=== PATIENT | female | born 1930 | race Caucasian/White ===

== ENCOUNTER 2016-12-10 11:46 | Inpatient (IN) | payer MEDICARE, OTHER ==
[~2016-12-10] VITALS: Ht 142.2 cm; Wt 52.7 kg
[~2016-12-10 11:46] MED LIST: ARICEPT5 MG PO; ASPIRIN ADULT L81 M1 PO; ATENOLOL/CHLORT1 TA1 PO; ATENOLOL25 MG PO; ATIVAN1 MG PO; BIAXIN FILMTAB500 MG PO; BUS5 PO; COL100 PO; COLACE100 MG PO; DEC150 PO; EC NAPROSYN500 MG PO; GLU500 PO; GOOD SENSE ASPI81 M3 PO; LAC PO; LEVAQUIN750 MG PO; LIPI10 PO; MEDDP PO; MOM PO; NORCO1 TA2 PO; OMEPRAZOLE40 M1 PO; PENTOXIFYL XR400 M1 PO; PRI20 PO; TEN50 PO; VENTOLIN H0.09 MG/A1 INH; VIT D3 PO
--- NOTE | 2016-12-10 11:55 | NUR ---
TO BED 7 VIA WHEELCHAIR, C/O SOB X2 DAYS. FAMILY AT BEDSIDE STATES COUGH AND COLD SX X1 WEEK. O2 SAT ON RA 91%.
--- NOTE | 2016-12-10 12:04 | NUR ---
DR. CAMPOS AT BEDSIDE.
--- NOTE | 2016-12-10 12:08 | NUR ---
LAB AT BEDSIDE.
--- NOTE | 2016-12-10 12:19 | NUR ---
RT AT BEDSIDE FOR BREATHING TX.
--- NOTE | 2016-12-10 12:19 | NUR ---
UNABLE TO GIVE URINE SAMPLE AT THIS TIME.
[2016-12-10 12:44] LABS: CALCIUM 10.3 mg/dL (8.5-10.1); CARBON DIOXIDE 39.3 mmol/L (21-32); CHLORIDE SERUM 94 mmol/L (98-107); CREATININE SERUM 0.8 mg/dL (0.6-1.0); GLUCOSE SERUM 122 mg/dL (74-106); POTASSIUM SERUM 3.6 mmol/L (3.5-5.1); SODIUM SERUM 134 mmol/L (136-145)
[2016-12-10 12:46] LABS: BASOPHIL % 0.2 % (0-2); PLATELET COUNT 285 x10^3mcL (130-400); RED CELL DISTRIBUTION WIDTH 14.1 % (11.5-14.5)
[2016-12-10 12:55] LABS: ALBUMIN 3.8 g/dL (3.4-5.0); ALKALINE PHOSPHATASE 106 U/L (46-116); ALT/SGPT 25 U/L (14-59); AST/SGOT 26 U/L (15-37); BILIRUBIN TOTAL 0.6 mg/dL (0.20-1.00); C REACTIVE PROTEIN 2.4 mg/dL (<=0.9); TOTAL PROTEIN, SERUM 7.8 g/dL (6.4-8.2)
[2016-12-10 13:03] LABS: FREE T4 1.5 ng/dL (0.76-1.46); T4(THYROXINE) 10.2 ug/dL (4.7-13.3)
[2016-12-10 13:12] LABS: T3 TOTAL 0.88 ng/mL
[2016-12-10] MEDS ORDERED: NAMENDA10 M2 (13:43)
[2016-12-10] MEDS ORDERED: TRE400 PO (13:44)
[2016-12-10] MEDS ORDERED: ARICEPT5 MG PO (13:44)
[2016-12-10] MEDS ORDERED: SIMVASTATIN10 M1 PO (13:46)
[2016-12-10] MEDS ORDERED: NAPROSYN500 MG PO (13:46)
[2016-12-10] MEDS ORDERED: TENORETIC 501 TAB PO (13:47)
[2016-12-10] MEDS ORDERED: ALENDRONATE SOD70 M2 PO (13:47)
[2016-12-10 13:58] LABS: microscopic required? YES
[2016-12-10 13:59] LABS: urine erythrocyte NEGATIVE (NEGATIVE)
--- NOTE | 2016-12-10 14:17 | NUR ---
PER MD CAMPOS OK TO HAVE APPLESAUCE FOR NOW.
--- NOTE | 2016-12-10 15:17 | NUR ---
2ND BREATHING TX IN PROGRESS.
--- NOTE | 2016-12-10 15:31 | NUR ---
PT ADMITTED TO TELE, REPORT GIVEN TO DAVID.
[2016-12-10 15:43] VITALS: BP 105/55
[2016-12-10 15:52] LABS: CHOLESTEROL/HDL RATIO 2.3
--- NOTE | 2016-12-10 16:10 | NUR ---
RECEIVED PT FROM ED VIA COURTNEY, CAME IN DUE TO WORSENING SOB. AAOX2. ABLE TO FOLLOW COMMANDS. MILD SOB NOTED, ON 3LPM/NC, LUNG SOUNDS DIMINISHED ON AUSCULTATION. PER FAMILY PT HAS DARK GREEN PHLEGM BUT THE PT HAS A HARD TIME EXPECTORATING. DENIES CHEST PAIN/PRESSURE, SR W/ PAC'S AND PVC'S ON THE MONITOR. DENIES ABDOMINAL DISCOMFORT. FAMILY AT BEDSIDE. SIDE RAILS UPX2. CALL LIGHT ON REACH. ENDORSED
[2016-12-10 16:18] VITALS: BP 108/46
[2016-12-10 16:30] VITALS: Ht 142.2 cm; Wt 52.7 kg
--- NOTE | 2016-12-10 18:39 | NUR ---
PT SITTING UP IN CHAIR, ON O2 VIA NC AT 2L, NO SOB NOTED. CALL LIGHT WITHIN REACH.
--- NOTE | 2016-12-10 19:05 | NUR ---
AOX2. FAMILY AT BEDSIDE. TELE #27, SR WITH PAC'S & PVC'S. LUNG SOUNDS DIMINISHED BILATERAL ON NC @ 3L. DENIES SOB AT THIS TIME. BOWEL SOUNDS ACTIVE X 4 QUADRANTS. VOIDS FREELY. AMBULATES WITH WALKER. SKIN INTACT. DENIES PAIN. NS @ 60 ML/HR TO LEFT HAND, NO REDNESS OR SWELLING. BED IN LOW POSITION, CALL LIGHT IN REACH. INSTRUCTED TO CALL FOR ASSISTANCE.
[2016-12-10 21:06] VITALS: BP 116/53
--- NOTE | 2016-12-11 01:26 | NUR ---
RESTING WITH EYES CLOSED, AWAKENS EASILY TO VERBAL STIMULI. BREATHING EVEN AND UNLABORED. NO ACUTE DISTRESS NOTED. WILL CONTINUE TO MONITOR.
[2016-12-11 05:41] VITALS: BP 123/55
--- NOTE | 2016-12-11 06:26 | NUR ---
NO ACUTE CHANGES DURING SHIFT. WILL ENDORSE TO ONCOMING RN.
[2016-12-11 06:46] LABS: BASOPHIL % 0.2 % (0-2); PLATELET COUNT 252 x10^3mcL (130-400); RED CELL DISTRIBUTION WIDTH 13.9 % (11.5-14.5)
[2016-12-11 07:10] LABS: CALCIUM 9.5 mg/dL (8.5-10.1); CARBON DIOXIDE 37.8 mmol/L (21-32); CHLORIDE SERUM 97 mmol/L (98-107); CREATININE SERUM 0.7 mg/dL (0.6-1.0); GLUCOSE SERUM 210 mg/dL (74-106); MAGNESIUM 1.8 mg/dL (1.8-2.4); PHOSPHOROUS 2.9 mg/dL (2.5-4.9); POTASSIUM SERUM 3.7 mmol/L (3.5-5.1); SODIUM SERUM 135 mmol/L (136-145)
--- NOTE | 2016-12-11 08:00 | NUR ---
AWAKE,ALERT W/ PERIODS OF FORGETFULNESS AND CONFUSION,ABLE TO FOLLOW SIMPLE COMMAND,REQUIRES/ MOD. ASSIST. W/ ADL NEEDS.ABLE TO AMBULATE W/ ASSIST W/ WALKER IN THE BATHROOM.NO ACUTE DISTRESS NOTED. CONT. IV FLUIDS ORDERED. CALL LIGHT W/ IN REACH. WILL CONT. PLAN OF CARE.
--- NOTE | 2016-12-11 08:30 | NUR ---
DR. ASIF HERE W/ OTHER MEDICAL STAFF MADE ROUNDS AND UPDATED PT. PLAN OF CARE.
[2016-12-11 09:05] VITALS: BP 116/57
--- NOTE | 2016-12-11 10:00 | NUR ---
PT. C/O OF ZURITA MEDICATED W/ TYLENOL ORDERED. MADE PT. COMFORTABLE IN BED.CALL LIGHT W/ IN REACH.
[2016-12-11 12:57] VITALS: BP 106/50
[2016-12-11 13:10] LABS: ERYTHROCYTE SED RATE 24 mm/hr (0-30)
[2016-12-11 16:54] VITALS: BP 100/52
--- NOTE | 2016-12-11 18:00 | NUR ---
PT. ABLE TO AMBULATE IN THE BATHROOM W/ ASSIST W/ WALKER AND VOIDING WELL ,PT. UP IN CHAIR FOR LUNCH AND DINNER PAUL. WELL. NO ACUTE DISTRESS NOTED.CALL LIGHT W/ IN REACH.
--- NOTE | 2016-12-11 20:00 | NUR ---
I HAVE REVIEWED THE DATA COLLECTION BY RACHAEL (NAME):JT GOLDBERG LVN ENTERED ON (DATE/TIME):12/11/16 AT 2000PM I CONCUR WITH THE DATA AND ANY EXCEPTIONS OR COMMENTS ARE LISTED BELOW:
--- NOTE | 2016-12-11 20:34 | NUR ---
RECEIVED PT SITTING ON THE CHAIR NO ACUTE DISTRESS NOTED , PT'S ON 2L N/C SAT 95% NO RESP DISTRESS NOTED, LUNG SOUNDS DIMINISHED WITH PRODUCTIVE COUGH NO RESP DISTRESS NOTED , PIV INTACT INFUSING WELL , ON TELE NUMBER 27 THAT SHOWS NSR HR 90.
[2016-12-11 20:56] VITALS: BP 105/51
--- NOTE | 2016-12-12 00:27 | NUR ---
PT'S SITTING ON THE CHAIR WITH EYES CLOSED , PIV INTACT INFUSING WELL , TELE NSR .
[2016-12-12 05:46] VITALS: BP 107/61
[2016-12-12 06:11] LABS: PLATELET COUNT 254 x10^3mcL (130-400); RED CELL DISTRIBUTION WIDTH 14.2 % (11.5-14.5)
[2016-12-12 06:22] LABS: CALCIUM 9.8 mg/dL (8.5-10.1); CARBON DIOXIDE 35.7 mmol/L (21-32); CHLORIDE SERUM 98 mmol/L (98-107); CREATININE SERUM 0.8 mg/dL (0.6-1.0); GLUCOSE SERUM 164 mg/dL (74-106); MAGNESIUM 1.9 mg/dL (1.8-2.4); PHOSPHOROUS 2.9 mg/dL (2.5-4.9); POTASSIUM SERUM 4.8 mmol/L (3.5-5.1); SODIUM SERUM 136 mmol/L (136-145)
--- NOTE | 2016-12-12 06:26 | NUR ---
NO CHANGES OF CONDITION NOTED, ALL DUE MEDS GIVEN NO REACTION NOTED PT;S IN BED AAO, NO RESP DISTRESS NOTED, TELE NSR .
[2016-12-12 06:30] LABS: BASOPHIL % 0 % (0-2)
--- NOTE | 2016-12-12 06:56 | NUR ---
SENT [employer] MESSAGE TO DR GOMEZ RE: WBC 21.0.
--- NOTE | 2016-12-12 07:20 | NUR ---
AAOX 3 ABLE TO VERBALIZE NEEDS WITH CLEAR AND COHERENT SPEECH, FAM AT BEDSIDE, PT IS ON OXYGEN AT 3L VIA NC, LUNGS CONGESTED AT ATA UPPER LOBES, PRODUCTIVE COUGH, NO PHLEGM NOTED, DENIES SOB, SYM CHEST EXPANSION, NO RESPIRATORY DISTRESS NOTED, ON TELE #27 SR ON MONITOR, DENIES HEART RELATED PAIN OR DISCOMFORT, IV AT LEFT HAND, PATENT, CALL LIGHT WITHIN REACH, WILL CONTINUE TO PROVIDE CARE.
[2016-12-12 09:03] VITALS: BP 109/47
[2016-12-12 12:30] VITALS: BP 110/58
--- NOTE | 2016-12-12 15:27 | NUR ---
C/O DECREASED APPETITE, ALTERNATIVE CHOICES OFFERED AND PROVIDED, STATES "THE FOOD DOES NOT TASTE GOOD HERE" WILL CONTINUE TO ENCOURAGE PO INTAKE, FAMILY IS VERY SUPPORTIVE.
[2016-12-12 17:12] VITALS: BP 103/55
--- NOTE | 2016-12-12 18:43 | NUR ---
PATIENT & FAMILY DECLINED DOSE OF HUM R INSULIN 3 UNITS FOR BG 163MG/DL, PT HAD BEEN DECLINING FOOD AND GRANDDAUGHTER FEARED HER BG WOULD "DROP TOO MUCH" RISKS AND BENEFITS EXPLAINED, PATIENT AND FAM VERBALIZED UNDERSTANDING OF INFORMATION.
--- NOTE | 2016-12-12 19:31 | NUR ---
FAM AT BEDSIDE, PT IS SITTING UP IN CHAIR, ON OXYGEN VIA NC AT 3L, DENIES SOB AT THIS TIME, CONTINUES TO HAVE COUGHING EPISODES, WAS ABLE TO EAT DINNER WITHOUT GI DISTRESS, NO OTHER SIGNIFICANT CHANGES NOTED, WILL ENDORSE CARE TO NIGHT NURSE.
--- NOTE | 2016-12-12 19:53 | NUR ---
RECEIVED AWAKE AND RESPONSIVE TO STIMULI. SKIN WARM AND DRY TO TOUCH. ON 02 AT 3L/NC .WITH DIMINISHED BREATHE SOUNDS BILATERALLY. DENEIS ANY CHEST PAIN/SNY DISCOMFORT AT THIS TIME. FAMILY AT BEDSIDE VERY SUPPORTIVE OF CURRENT PATIENT'S PLAN OF CARE.
[2016-12-12 21:54] VITALS: BP 135/70
--- NOTE | 2016-12-13 00:10 | NUR ---
EYES CLSOED, NO FACIAL GRIAMCING NOTED. RESPIRATION EVEN AND UNLABORED. MAINTAINED AT 3L/NC SATURATING AT 96-97%. UP IN THE CHAIR MOST OF THE TIME FOR COMFORT. WILL CONTINUE TO MONITOR.
[2016-12-13 05:10] VITALS: BP 116/72
[2016-12-13 06:23] VITALS: BP 116/63
[2016-12-13 06:28] LABS: BASOPHIL % 0.5 % (0-2); PLATELET COUNT 261 x10^3mcL (130-400); RED CELL DISTRIBUTION WIDTH 13.6 % (11.5-14.5)
--- NOTE | 2016-12-13 06:30 | NUR ---
BLOOD SUGAR-141MG/DL, NO S.//S OF GLYCEMIC REACTION. TOELRATED ORAL FLUIDS, NO S/S OF ASPIRATION NOTED. NO S/S OF ACUTE RESPIRATORY DISTRESS. ALL NEEDS ATTENDED.
[2016-12-13 06:58] LABS: CALCIUM 9.8 mg/dL (8.5-10.1); CARBON DIOXIDE 36.1 mmol/L (21-32); CHLORIDE SERUM 96 mmol/L (98-107); CREATININE SERUM 0.7 mg/dL (0.6-1.0); GLUCOSE SERUM 133 mg/dL (74-106); MAGNESIUM 1.8 mg/dL (1.8-2.4); PHOSPHOROUS 2.5 mg/dL (2.5-4.9); POTASSIUM SERUM 3.7 mmol/L (3.5-5.1); SODIUM SERUM 135 mmol/L (136-145)
[2016-12-13 08:39] VITALS: BP 125/63
--- NOTE | 2016-12-13 08:42 | NUR ---
X-RAY OF SHOULDER COMPLETED AT THIS TIME.
--- NOTE | 2016-12-13 09:10 | NUR ---
C/O FEELING NAUSEUS, DECLINED BREAKFAST TRAY, ADMIN ANTIEMETIC ORDERED, PT IS CURRENTLY SITTING UP IN CHAIR, DENIES SOB, FAM AT BEDSIDE.
[2016-12-13 12:40] VITALS: BP 112/68
--- NOTE | 2016-12-13 13:46 | NUR ---
ORDER TO WEAN PT OFF OF OXYGEN ENTERED, DR VARNER MADE AWARE OF PT'S CONTINUOUS USE OF OXYGEN AT HOME, WILL D/C ORDER. ,
--- NOTE | 2016-12-13 14:45 | NUR ---
CONTINUES TO HAVE DECREASED APPETITE, REINFORCED EDUCATION ON POSSIBLE SIDE EFFECTS OF IV ANTIBIOTIC AFFECTING TASTE BUDS, PT VERBALIZED UNDERSTANDING, DAUGHTER REPORTS PATIENT IS A "VERY PICKY EATER AT HOME TOO" WILL CONTINUE TO ENCOURAGE ADEQUATE NUTRITION, CALL LIGHT WITHIN REACH.
[2016-12-13] MEDS ORDERED: MEDDP PO (15:00)
[2016-12-13] MEDS ORDERED: LEVAQUIN750 MG PO (15:35)
[2016-12-13 15:59] VITALS: BP 112/68
[2016-12-13 17:10] VITALS: BP 115/60
--- NOTE | 2016-12-13 18:05 | NUR ---
PATIENT DISCHARGED HOME, REVIEWED DISCHARGE INSTRUCTIONS WITH DAUGHTER AND PATIENT, INCLUDING FOLLOW UP APPOINTMENT WITH PCP, DAUGHTER AND PATIENT VERBALIZED UNDERSTANDING OF INFORMATION PRESENTED. IV D/C'D, CATH TIP INTACT, NO BLEEDING OR PHLEBITIS NOTED, COVERED WITH BANDAID, TELE MONITOR REMOVED, PATIENT WILL BED ASSISTED DOWNSTAIRS VIA WHEELCHAIR BY DAUGHTER AND THREAD REELER.
== END 2016-12-13 18:05 | disposition home or self-care (01) | DRG 189 ==
LOC: ED 11:46 → DU 15:03
PROVIDERS: Specialist; ADMIT Family Medicine
DX: J96.01 Acute respiratory failure with hypoxia (principal); N17.0 Acute kidney failure with tubular necrosis; J44.1 Chronic obstructive pulmonary disease with (acute) exacerbation; N39.0 Urinary tract infection, site not specified; E87.1 Hypo-osmolality and hyponatremia; I42.9 Cardiomyopathy, unspecified; E86.0 Dehydration; I08.1 Rheumatic disorders of both mitral and tricuspid valves; I10 Essential (primary) hypertension; E11.65 Type 2 diabetes mellitus with hyperglycemia; E11.51 Type 2 diabetes mellitus with diabetic peripheral angiopathy without gangrene; E83.52 Hypercalcemia; M81.0 Age-related osteoporosis without current pathological fracture; F41.9 Anxiety disorder, unspecified; F03.90 Unspecified dementia, unspecified severity, without behavioral disturbance, psychotic disturbance, mood disturbance, and anxiety; Z68.26 Body mass index [BMI] 26.0-26.9, adult; Z99.81 Dependence on supplemental oxygen; Z77.22 Contact with and (suspected) exposure to environmental tobacco smoke (acute) (chronic)
CPT/HCPCS: 36600; 83880; 84439; G0378; J0456; J0696; J2405; J2920; J2930; J7030; J7050; J7613; J7620; J7644; Q0092

== ENCOUNTER 2018-04-04 15:59 | Inpatient (IN) | payer MEDICARE, OTHER ==
[~2018-04-04] VITALS: Ht 142.2 cm; Wt 53.1 kg
[~2018-04-04 15:59] MED LIST changes: +ALENDRONATE SOD70 M2 PO; +NAMENDA10 M2; +NAPROSYN500 MG PO; +SIMVASTATIN10 M1 PO; +TENORETIC 501 TAB PO; +TRE400 PO
--- NOTE | 2018-04-04 16:09 | NUR ---
TO ROOM 5 FOR EVAL.
--- NOTE | 2018-04-04 16:43 | NUR ---
PATIENT IN ED WITH C/O FEELING SOB AND HAVING LABORED BREATHING FOR 3DAYS. PER DAUGHTER, PATIENT HAS HX OF COPD IS ON 3L OXYGEN VIA NC BUT HAS HAD TO INCREASE TO 4L IN PAST TWO DAYS. PATIENT AAOX4 TALKING AND RESPONDING APPROPRIETLY. PLACED ON MONITOR, OXYGEN VIA NC AT 4L. WILL CONTINUE TO MONITOR.
[2018-04-04 17:35] LABS: UA SPECIFIC GRAVITY 1.015 (1.005-1.035); microscopic required? YES; urine erythrocyte TRACE (NEGATIVE)
[2018-04-04 17:47] LABS: BASOPHIL % 0.4 % (0-2); PLATELET COUNT 240 x10^3mcL (130-400)
[2018-04-04 17:49] LABS: RED CELL DISTRIBUTION WIDTH 15.2 % (11.5-14.5)
--- NOTE | 2018-04-04 18:02 | NUR ---
PATIENT ON BIPAP, TOLERATING WELL. NAD AT THIS TIME. SLEEPING. FAMILY AT BEDSIDE. WILL CONTINUE TO MONITOR.
[2018-04-04 18:11] LABS: ALKALINE PHOSPHATASE 86 U/L (46-116); ALT/SGPT 24 U/L (14-59); AST/SGOT 21 U/L (15-37); BILIRUBIN TOTAL 0.3 mg/dL (0.20-1.00); CALCIUM 9.9 mg/dL (8.5-10.1); CHLORIDE SERUM 94 mmol/L (98-107); CHOLESTEROL 142 mg/dL (<200); CREATININE SERUM 0.8 mg/dL (0.6-1.0); GLUCOSE SERUM 159 mg/dL (74-106); HDL CHOLESTEROL 58 mg/dL (40-60); LIPASE 506 IU/L (73-393); MAGNESIUM 1.6 mg/dL (1.8-2.4); POTASSIUM SERUM 4.1 mmol/L (3.5-5.1); SODIUM SERUM 140 mmol/L (136-145); T4(THYROXINE) 6.6 ug/dL (4.7-13.3)
[2018-04-04 18:22] LABS: ALBUMIN 2.9 g/dL (3.4-5.0); AMYLASE 191 U/L (25-115)
[2018-04-04 18:23] LABS: CARBON DIOXIDE 42.4 mmol/L (21-32)
[2018-04-04] MEDS ORDERED: LASIX20 MG (18:43)
--- NOTE | 2018-04-04 19:00 | NUR ---
PATIENT VOIDED X1, DIAPER AND LINEN SOILED AND CHANGED. PT. TOLERATED WELL. REPORTS SHE IS FEELING LESS SOB AT THIS TIME. CURRENTLY ON BIPAP. DAUGHTER AT BEDSIDE. CALL LIGHT IN REACH.
--- NOTE | 2018-04-04 19:10 | NUR ---
REPORT GIVEN TO RASHEL WILDER FOR FURTHER CARE OF PT
--- NOTE | 2018-04-04 19:32 | NUR ---
RECEIVED REPORT FROM TINA ANDRES FOR CONTINUITY OF CARE
--- NOTE | 2018-04-04 20:06 | NUR ---
REPORT GIVEN TO TINA BARBER FOR CONTINUITY OF CARE
--- NOTE | 2018-04-04 20:16 | NUR ---
RECEIVED PT FROM ED VIA JACKELIN, CAME IN DUE TO SOB. AAOX3 (PERSON, PLACE, MONTH AND YEAR AND BIRTHDATE). ABLE TO FOLLOW SIMPLE COMMANDS. NO SOB NOTED, LUNG SOUNDS DIMINISHED ON AUSUCLTATION, O2 SAT=99%. ON BIPAP W/ THE FF. SETTINGS: IPAP=12, EPAP=6, RATE=12, FIO2=35%. DENIES CHEST PAIN/PRESSURE, NSR ON THE MONITOR. DENIES ABDOMINAL DISCOMFORT. URINE INCONTINENT. W/ BLANCHABLE REDNESS ON THE BUTTOCKS AND GREENISH DISCOLORATION ON THE LEFT HAND. PT IS ABLE TO TURN AND REPOSITION SELF IN BED. DAUGHTER AT BEDSIDE. HOB ELEVATED AT 30 DEG. BED ALARM ON. CALL LIGHT ON REACH. PRIMARY NURSE ELISABETH AT BEDSIDE
[2018-04-04 20:55] VITALS: BP 106/78
[2018-04-04 20:58] VITALS: BP 112/51
[2018-04-04 21:02] VITALS: Ht 142.2 cm; Wt 53.1 kg
--- NOTE | 2018-04-04 23:10 | NUR ---
PT REFUSED TO PUT BIPAP ON AFTER MEDICATION ADMINISTRATION. RR EVEN AND UNLABORED ON 2L NC. SATURATION 98%. RT AT BEDSIDE. OKAY TO LEAVE WITH NC. WILL ASSESS THROUGHOUT THE NIGHT.
--- NOTE | 2018-04-05 03:42 | NUR ---
PT RESTING IN BED RR EVEN AND UNLABORED. NO ACUTE DISTRESS NOTED. FAMILY AT BEDSIDE. BED IN LOWEST POSITION, CALL LIGHT WITHIN REACH. WILL CONTINUE TO MONITOR
[2018-04-05 06:14] VITALS: BP 108/63
[2018-04-05 06:25] LABS: CALCIUM 8.9 mg/dL (8.5-10.1); CHLORIDE SERUM 98 mmol/L (98-107); CREATININE SERUM 0.8 mg/dL (0.6-1.0); GLUCOSE SERUM 165 mg/dL (74-106); MAGNESIUM 1.5 mg/dL (1.8-2.4); POTASSIUM SERUM 3.5 mmol/L (3.5-5.1); SODIUM SERUM 142 mmol/L (136-145)
[2018-04-05 06:46] LABS: BASOPHIL % 0.2 % (0-2); PLATELET COUNT 222 x10^3mcL (130-400)
--- NOTE | 2018-04-05 07:12 | NUR ---
RECEIVED PATIENT FROM COSMETICS PRESSER NURSE. PATIENT IS AWAKE AND ALERT. TELE#7, SR, HR 82, DENIES CHEST PAIN AND PALPITATIONS.1+ EDEMA NOTED TO BLE, ELEVATED ON PILLOWS. PATIENT IS ON 2L NC, O2 SAT SPOT CHECKED AT 88%, PATIENT PLACED ON 4 L NC AT THIS TIME, O2 SAT 92%, BREATHING EVEN AND UNLABORED WITH SLIGHT EXPIRATORY WHEEZES NOTED. PATIENT IS INCONTINENT, CLEAN AND DRY AT THIS TIME. IV NOTED TO LAC, SALINE LOCKED, FLUSHING WELL, NO S/S REDNESS OR EDEMA AT SITE. CALL LIGHT WITHIN EASY REACH. SAFETY AND FALL PRECAUTIONS IN PLACE. FAMILY AT THE BEDSIDE. WILL CONTINUE TO CLOSELY MONITOR.
[2018-04-05 07:33] LABS: CARBON DIOXIDE 44.5 mmol/L (21-32)
[2018-04-05 07:54] VITALS: BP 116/61
--- NOTE | 2018-04-05 09:09 | NUR ---
CALLED AND SPOKE TO AND MADE HER AWARE OF CO2(BMP)RESULT FROM 42.4 WENT UP TO 44.5, NEW ORDER OF ABG RECEIVED. DARYL(Luther) MADE AWARE OF ABG ORDER WELL MALIKA RN ASSIGNED TO THIS PT. WILL CONT TO MONITOR.
--- NOTE | 2018-04-05 10:23 | NUR ---
PATIENTS FAMILY CALLED AT THIS TIME STATING THAT PT HAS INCREASING SOB. PATIENT ASSESSED AND NOTED TO HAVE LABORED BREATHING WITH RR 22. PATIENT ATTEMPTING TO CLEAR THROAT AT THIS TIME. PATIENT SUCTIONED WITH RELIEF IN SYMPTOMS. O2 SAT 89%, WITH RR 20. PATIENT ABLE TO SELF CLEAR SECRETIONS. SUCTION SETUP REMAINS AT BEDSIDE. PATIENT AND FAMILY INSTRUCTED TO NOTIFY IF BREATHING BECOMES LABORED.
[2018-04-05 13:17] VITALS: BP 111/73
--- NOTE | 2018-04-05 14:05 | NUR ---
ULTRASOUND AT BEDSIDE. PATIENT RESTING WELL. BREATHING APPEARS EVEN AND UNLABORED AT THIS TIME. RT PROTOCOL. PATIENT IS ON 2L NC, O2 SAT 92%. WILL CONTINUE TO CLOSELY MONITOR.
[2018-04-05 17:27] VITALS: BP 122/68
--- NOTE | 2018-04-05 18:54 | NUR ---
PATIENT RESTING IN BED PEACEFULLY IN NO ACUTE DISTRESS. BREATHING EVEN ADNUNLABORED ON 2L NC. DENIES CHEST PAIN AND PRESSURE. CALL LIGHT WITHIN EASY REACH. WILL ENDORSE PATIENT CARE TO WELL POINT PUMPING SUPERVISOR NURSE.
--- NOTE | 2018-04-05 19:10 | NUR ---
RECEIVED PT LAYING IN BED WITH DAUGHTER AT BEDSIDE, NO ACUTE DISTRESS NOTED, DENIES PAIN OR DISCOMFORT. BREATHING ON 2L NC, EVEN AND UNLABORED, DENIES SOB OR DYSPNEA, LUNGS DIM TO BASES. AA/OX4, ABLE TO MAKE NEEDS KNOWN, SPEECH SLOW AND APPROPRIATE. NSR TO TELE #7, NO CP. PULSES PRESENT AND EQUAL THROUGHOUT, +1 EDEMA NOTED TO BLE. ABD ROUND AND SOFT WITH ACTIVE BOWEL SOUNDS, DENIES N/V/D. INCONTINENT OF STOOL AND URINE, WILL PROVIDE PERICARE NEEDED. GENERALIZED WEAKNESS NOTED, PT AMBULATES WITH WALKER AT BASELINE, ABLE TO TURN AND REPOSITION SELF IN BED. BLANCHABLE REDNESS TO SACRAL. IV TO LAC IN PLACE, S/L AT THIS TIME, DRY, PATENT, INTACT, NO PAIN, REDNESS, OR SWELLING WHEN FLUSHED WITH NS. COMFORT AND SAFETY MEASURES IN PLACE. BED IN LOWEST POSITION WITH SIDE RAILS UP X2 AND BED ALARM ACTIVATED. CALL LIGHT WITHIN REACH. WILL CONTINUE TO MONITOR
--- NOTE | 2018-04-05 19:15 | NUR ---
PT HAD INCONTINENT EPISODE OF URINE, PERICARE PROVIDED, PT ABLE TO TURN AND REPOSITION. DAUGHTER AT BEDSIDE. CALL LIGHT WITHIN REACH. WILL CONTINUE TO MONITOR
--- NOTE | 2018-04-05 20:50 | NUR ---
ALL DUE MEDS GIVEN WITHOUT ISSUE, ASPIRATION PRECAUTIONS UTILIZED. CALL LIGHT WITHIN REACH. NO DISTRESS NOTED. SISTER AT BEDSIDE. WILL CONTINUE TO MONITOR
[2018-04-05 21:20] VITALS: BP 124/61
--- NOTE | 2018-04-05 23:39 | NUR ---
PT HAD INCONTINENT EPISODE OF URINE. PERICARE PROGIVED, TURNED AND REPOSITIONED FOR COMFORT. NO ACUTE DISRESS NOTED. SISTER AT BEDSIDE. CALL LIGHT WITHIN REACH. WILL CONTINUE TO MONITOR
--- NOTE | 2018-04-06 05:37 | NUR ---
NO SIGNIFICANT CHANGES TO REPORT, PT COMPLIED WITH NURSING CARE THROUGHOUT THE SHIFT WITH NO ACUTE EVENTS OVERNIGHT. COMFORT AND SAFETY MEASURES MAINTAINED. NO DISTRESS NOTED AT THIS TIME, PT REMAINS BREATHING ON 2L NC, EVEN AND UNLABORED. CALL LIGHT WITHIN REACH. SISTER AT BEDSIDE. WILL ENDORSE CARE TO DAY SHIFT NURSE
[2018-04-06 06:38] VITALS: BP 115/64
[2018-04-06 07:30] LABS: CALCIUM 9.1 mg/dL (8.5-10.1); CHLORIDE SERUM 98 mmol/L (98-107); CREATININE SERUM 0.7 mg/dL (0.6-1.0); GLUCOSE SERUM 188 mg/dL (74-106); MAGNESIUM 1.9 mg/dL (1.8-2.4); PHOSPHOROUS 3.3 mg/dL (2.5-4.9); SODIUM SERUM 141 mmol/L (136-145)
[2018-04-06 07:37] LABS: CARBON DIOXIDE 40.7 mmol/L (21-32)
[2018-04-06 07:41] LABS: BASOPHIL % 0.1 % (0-2); PLATELET COUNT 227 x10^3mcL (130-400); RED CELL DISTRIBUTION WIDTH 14.7 % (11.5-14.5)
--- NOTE | 2018-04-06 07:55 | NUR ---
AWAKE,ALERT AND ABLE TO FOLLOW SIMPLE COMMAND W/ PERIOD OF FORGETFULLNESS,REQUIRES. MOD/. ASSIST. W/ ADL NEEDS,CALL LIGHT W/ IN REACH NO ACUTE RESP. DISTRESS NOTED. CONT. 02 AT 2 L N/C W/ R.T PROTOCOL. CONT. IV ANTIBIOTIC ORDERED.WILL CONT. PLAN OF CARE,CALL LIGHT W/ IN REACH.
[2018-04-06 10:23] VITALS: BP 102/51
[2018-04-06 16:20] VITALS: BP 113/66
[2018-04-06 18:45] VITALS: BP 112/65
--- NOTE | 2018-04-06 18:54 | NUR ---
PT. C/O ANXIETY MEDICATED W/ ATIVAN ORDERED.INCONT. OF URINE KEEP CLEAN AND DRY.FAMILY AT BEDSIDE ALWAYS,NO ACUTE DISTRESS NOTED. CALL LIGHT W/ IN REACH.
--- NOTE | 2018-04-06 19:10 | NUR ---
RECEIVED PT LAYING IN BED WITH DAUGHTER AT BEDSIDE, NO ACUTE DISTRESS NOTED, DENIES PAIN OR DISCOMFORT. BREATHING ON 2L NC, EVEN AND UNLABORED, DENIES SOB OR DYSPNEA, LUNGS DIM TO BASES, O2 SAT 99% AA/OX4, ABLE TO MAKE NEEDS KNOWN, SPEECH SLOW AND APPROPRIATE. NSR TO TELE #7, NO CP. PULSES PRESENT AND EQUAL THROUGHOUT, NO EDEMA NOTED. ABD ROUND AND SOFT WITH ACTIVE BOWEL SOUNDS, DENIES N/V/D. INCONTINENT OF STOOL AND URINE, WILL PROVIDE PERICARE NEEDED. GENERALIZED WEAKNESS NOTED, PT AMBULATES WITH WALKER AT BASELINE, ABLE TO TURN AND REPOSITION SELF IN BED. BLANCHABLE REDNESS TO SACRAL, HYDRAGAURD APPLIED. IV TO LAC IN PLACE, S/L AT THIS TIME, DRY, PATENT, INTACT, NO PAIN, REDNESS, OR SWELLING WHEN FLUSHED WITH NS. COMFORT AND SAFETY MEASURES IN PLACE. BED IN LOWEST POSITION WITH SIDE RAILS UP X2 AND BED ALARM ACTIVATED. CALL LIGHT WITHIN REACH. WILL CONTINUE TO MONITOR
[2018-04-06 20:54] VITALS: BP 121/62
--- NOTE | 2018-04-06 23:55 | NUR ---
RECEIVED CALL FROM REMOTV, 6 BEAT RUN OF VTACH, CURRENTLY NSR AT THIS TIME. PT LAYING IN BED BED, AWAKE, ALERT, DENIES CP OR DISCOMFORT. CALL LIGHT WITHIN REACH. WILL CONTINUE TO MONITOR
--- NOTE | 2018-04-07 00:34 | NUR ---
PT IS ANXIOUS, UNABLE TO SLEEP, REMOVING GOWN. MEDICATED WITH PRN ATIVAN PER EMAR. PT HAD INCONTINENT EPISODE OF URINE, PERICARE PROVIDED, TURNED AND REPOSITIONED FOR COMFORT. NO ACUTE DISTRESS NOTED, BREATHING EVEN AND UNLABORED ON 2L NC. GRAND DAUGHTER AT BEDSIDE. CALL LIGHT WITHIN REACH. WILL CONTINUE TO MONITOR
--- NOTE | 2018-04-07 05:13 | NUR ---
NO SIGNIFICANT CHANGES TO REPORT, PT COMPLIED WITH NURSING CARE THROUGHOUT THE SHIFT WITH NO ACUTE EVENTS OVERNIGHT. NO DISTRESS NOTED AT THIS TIME, PT LAYING IN BED, BREATHING EVEN AND UNLABORED. COMFORT AND SAFETY MEASURES MAINTAINED. ALL NEEDS ASSESSED AND ATTENDED TO. CALL LIGHT WITHIN REACH. WILL ENDORSE CARE TO DAY SHIFT NURSE
[2018-04-07 05:38] VITALS: BP 123/66
--- NOTE | 2018-04-07 07:40 | NUR ---
RECEIVED PT RESTING IN BED. A/OX4. DENIES CHEST PAIN. NO SOB NOTED, ON 2L NC, 97% PULSE OX. DENIES PAIN AT THIS TIME. IV TO RFA, SALINE LOCK. IV SITE CDI, NO REDNESS, PAIN, OR SWELLING AT SITE. TELE MONITOR IN PLACE. CALL LIGHT WITHIN REACH. BED IN LOW POSITION. WILL CONTINUE TO MONITOR.
[2018-04-07 09:44] VITALS: BP 117/61
[2018-04-07] MEDS ORDERED: LEVAQUIN750 MG PO (11:40)
[2018-04-07] MEDS ORDERED: MEDDP PO (11:40)
[2018-04-07 13:23] VITALS: BP 105/68
--- NOTE | 2018-04-07 15:35 | NUR ---
SPOKE WITH FRANK MILLIGAN AND INFORMED HER PATIENT WAS SEEN BY [facility] WHO IS RECOMMENDING SNF. DAUGHTER ACE AT BEDSIDE IS REFUSING SNF AND IS AGREEABLE FOR PATIENT TO BE DISCHARGED HOME WITH HOME HEALTH FOR PHYSICAL THERAPY. PER FRANK MILLIGAN IF OKAY WITH DR. LINCOLN PATIENT MAY BE DISCHARGED HOME TODAY, AND WILL START ON HOME HEALTH WITH P.T ON Saturday04/09/18. CHARGE NURSE DEZ MADE AWARE.
--- NOTE | 2018-04-07 15:39 | NUR ---
SPOKE WITH DR LINCOLN RE: DISCHARGE HOME AND PER DR LINCOLN PATIENT CAN DISCHARGED TODAY. ATTENDING NURSE ALLY VERA.
[2018-04-07 16:28] VITALS: BP 105/68
--- NOTE | 2018-04-07 18:30 | NUR ---
PATIENT WAS ABLE TO DRESS WITH ASSISTANCE. PATIENT DENIES CHEST. NO SOB NOTED. PATIENT STABLE FOR DISCHARGE HOME, DC INSTRUCTION, PRESCRIPTION, BELONGINGS LIST GIVEN TO PT AND DAUGHTER ACE AT BEDSIDE. DAUGHTER ACE VERBALIZE UNDERSTANDING TO FOLLOW UP WITH PCP. TELE REMOVED, IV REMOVED; CATH INTAC, ARMBANDS REMOVED. PATIENT REQUESTED TO KEEP NAME ARMBANDACE AWARE IT HAS PT ACCOUNT INFOMATION. PT ASSISTED DOWN VIA WHEELCHAIR, GEOLOGY SCIENTIST ASSISTED PATIENT DOWN FOR SAFETY. ALL QUESTIONS AND CONCERNS ANSWERED.
== END 2018-04-07 18:30 | disposition home or self-care (01) | DRG 177 ==
LOC: ED 15:59 → DU 19:32
PROVIDERS: Emergency Medicine; ADMIT Internal Medicine
DX: J69.0 Pneumonitis due to inhalation of food and vomit (principal); J96.02 Acute respiratory failure with hypercapnia; N17.0 Acute kidney failure with tubular necrosis; E43 Unspecified severe protein-calorie malnutrition; I50.43 Acute on chronic combined systolic (congestive) and diastolic (congestive) heart failure; J44.1 Chronic obstructive pulmonary disease with (acute) exacerbation; J90 Pleural effusion, not elsewhere classified; N39.0 Urinary tract infection, site not specified; J44.9 Chronic obstructive pulmonary disease, unspecified; E83.42 Hypomagnesemia; E11.65 Type 2 diabetes mellitus with hyperglycemia; I10 Essential (primary) hypertension; E78.00 Pure hypercholesterolemia, unspecified; M81.0 Age-related osteoporosis without current pathological fracture
CPT/HCPCS: 36600; 82962; 83880; 97116-GP; 97530-GP; J1644; J1940; J1956; J2920; J3475; J3490; J7050; J7620; J7626; Q0092

== ENCOUNTER 2018-05-27 11:30 | Emergency (ER) | payer MEDICARE, OTHER ==
[~2018-05-27] VITALS: Ht 129.5 cm; Wt 49.9 kg
[~2018-05-27 11:30] MED LIST changes: +LASIX20 MG
[2018-05-27 11:50] VITALS: Ht 129.5 cm; Wt 49.9 kg
[2018-05-27] MEDS ORDERED: GOOD SENSE OMEP20 MG PO (12:06)
[2018-05-27] MEDS ORDERED: VENTOLIN H0.09 MG/A1 (12:16)
[2018-05-27 12:38] LABS: BASOPHIL % 0.5 % (0-2); PLATELET COUNT 249 x10^3mcL (130-400)
[2018-05-27 12:39] LABS: RED CELL DISTRIBUTION WIDTH 15.9 % (11.5-14.5)
[2018-05-27 12:46] LABS: CALCIUM 10.3 mg/dL (8.5-10.1); CARBON DIOXIDE 39.7 mmol/L (21-32); CHLORIDE SERUM 101 mmol/L (98-107); CREATININE SERUM 0.7 mg/dL (0.6-1.0); GLUCOSE SERUM 119 mg/dL (74-106); POTASSIUM SERUM 5.1 mmol/L (3.5-5.1); SODIUM SERUM 140 mmol/L (136-145)
[2018-05-27 12:51] LABS: ALBUMIN 3.3 g/dL (3.4-5.0); ALKALINE PHOSPHATASE 76 U/L (46-116); ALT/SGPT 23 U/L (14-59); AST/SGOT 24 U/L (15-37); BILIRUBIN TOTAL 0.61 mg/dL (0.20-1.00); TOTAL PROTEIN, SERUM 6.9 g/dL (6.4-8.2)
[2018-05-27 16:23] VITALS: BP 145/82
== END 2018-05-27 16:23 | disposition home or self-care (01) ==
LOC: ED 11:30
PROVIDERS: Emergency Medicine
DX: L03.116 Cellulitis of left lower limb (principal); R10.11 Right upper quadrant pain; J44.9 Chronic obstructive pulmonary disease, unspecified; I10 Essential (primary) hypertension; E11.9 Type 2 diabetes mellitus without complications; E78.00 Pure hypercholesterolemia, unspecified; Z90.49 Acquired absence of other specified parts of digestive tract
CPT/HCPCS: 36415; 82962; Q0092